=== PATIENT | male | born 1985 | race African-American/Black ===

== ENCOUNTER 2019-08-27 18:50 | Emergency (ER) | payer BC, OTHER ==
[2019-08-27 19:53] LABS: CHLORIDE,CL 103 mmol/L (98-107); SODIUM,NA 138 mmol/L (136-145)
[2019-08-27] MEDS ORDERED: Ondansetron 4 MG Tab.DIS PO ONE (20:59)
[2019-08-27] MEDS ORDERED: Magnesium Citrate Solution 296 ML Bottle PO ONE (20:59)
[2019-08-27] MEDS ORDERED: traMADol 50 MG Tab PO ONE (20:59)
[2019-08-27] MEDS ORDERED: Ketorolac 10 MG Tab PO ONE (21:00)
--- NOTE | 2019-08-27 21:12 | EDM.PDOC ---
ED HPI GENERAL MEDICAL PROBLEM - General Chief Complaint: General Stated Complaint: L LOWER RIB PAIN Time Seen by Provider: 08/27/19 19:03 Source of Information: Reports: Patient History Limitations: Reports: No Limitations - History of Present Illness INITIAL COMMENTS - FREE TEXT/NARRATIVE: Patient comes to ER with complaint of pain around lower anterior lateral ribs/upper abdomen. No injury but has been performing heavy lifting at [employer]. Started this morning. No history of similar pain in past. Denies HEENT changes/cough/SOB/chest pain. Deep breathing makes the pain mildly worse. Denies fever/recent illness. No nausea/emesis/bowel changes. No obvious constipation/loose stools. Eating and drinking well. No change with pain with positional change or PO intake. Denies hematuria/urinary changes. No headache/neuro changes. Does feel a little "bloated" in general around abdomen. Left Thoracic Pain Score (Numeric/FACES): 3 - Related Data Allergies Allergy/AdvReac Type Severity Reaction Status Date / Time No Known Allergies Allergy Verified 05/09/18 09:05 Home Meds: Home Meds . [No Known Home Meds] 05/09/18 [History] Past Medical History - Past Health History Medical/Surgical History: Denies Medical/Surgical History - Infectious Disease History Infectious Disease History: Reports: None Social & Family History - Family History Family Medical History: Noncontributory - Caffeine Use Caffeine Use: Reports: Coffee ED ROS GENERAL - Review of Systems Review Of Systems: Comprehensive ROS is negative, except as noted in HPI. ED EXAM, GENERAL - Physical Exam Exam: See Below Exam Limited By: No Limitations General Appearance: Alert, WD/WN, No Apparent Distress Eye Exam: Bilateral Eye: EOMI, PERRL Ears: Hearing Grossly Normal Nose: No: Nasal Deformity, Nasal Swelling, Nasal Drainage Throat/Mouth: Normal Lips, Normal Voice, No Airway Compromise Head: Atraumatic, Normocephalic Neck: Supple, Non-Tender, Full Range of Motion Respiratory/Chest: No Respiratory Distress, Lungs Clear, Normal Breath Sounds, No Accessory Muscle Use, Other (tender with palpation over lower anterior/ lateral rib margin. Reproduces pain complaint. No crepitius. No bruising or swelling. ) Cardiovascular: Regular Rate, Rhythm, No Edema, No Murmur GI/Abdominal: Normal Bowel Sounds, Soft, No Distention, Tender (over LUQ and left mid abdomen. Reproduces patient's pain complaint. ). No: Guarding, Rigid, Rebound (Male) Exam: Deferred Rectal (Males) Exam: Deferred Back Exam: Normal Inspection Extremities: Normal Inspection, Normal Range of Motion, Normal Capillary Refill Neurological: Alert, Oriented, Normal Cognition, Normal Gait, No Motor/Sensory Deficits Psychiatric: Normal Affect, Normal Mood Skin Exam: Warm, Dry, Intact, Normal Color, No Rash Course - Vital Signs Last Recorded V/S: Last Vital Signs Temp 36.6 C 08/27/19 18:57 Pulse 69 08/27/19 18:57 Resp 16 08/27/19 18:57 BP 126/85 08/27/19 18:57 Pulse Ox 100 08/27/19 18:57 - Orders/Labs/Meds Orders: Active Orders 24 hr Category Date Time Status Abdomen 2V AP Flat Upright [CR] Stat Exams 08/27/19 20:15 Ordered Ribs 2V w Chest Lt [CR] Stat Exams 08/27/19 19:41 Taken Labs: Laboratory Tests 08/27/19 08/27/19 08/27/19 Range/Units 19:31 19:31 20:14 WBC 7.1 (4.0-10.2) K/uL RBC 4.85 (4.33-5.41) M/uL Hgb 15.4 (13.1-16.8) g/dL Hct 43.2 (39.0-49.0) % MCV 89.1 (84.0-98.0) fL MCH 31.8 (28.2-33.3) pg MCHC 35.6 (31.7-36.0) g/dL RDW 11.8 (11.2-14.1) % Plt Count 296 (150-350) K/uL Neut % (Auto) 57.1 (45.0-80.0) % Lymph % (Auto) 30.3 (10.0-50.0) % [place] % (Auto) 10.5 (2.0-14.0) % Eos % (Auto) 1.5 (0.0-5.0) % Baso % (Auto) 0.6 (0.0-2.0) % Neut # (Auto) 4.07 (1.40-7.00) K/uL Lymph # (Auto) 2.16 (0.50-3.50) K/uL [place] # (Auto) 0.75 (0.00-1.00) K/uL Eos # (Auto) 0.11 (0.00-0.50) K/uL Baso # (Auto) 0.04 (0.00-0.20) K/uL Sodium 138 (136-145) mmol/L Potassium 3.7 (3.5-5.1) mmol/L Chloride 103 (98-107) mmol/L Carbon Dioxide 27.1 (21.0-32.0) mmol/L BUN 11 (7-18) mg/dL Creatinine 0.96 (0.51-1.17) mg/dL Est Cr Clr Drug Dosing 107.67 mL/min Estimated GFR (MDRD) > 60 mL/min Glucose 107 H (74-106) mg/dL Calcium 8.6 (8.5-10.1) mg/dL Total Bilirubin 0.4 (0.2-1.0) mg/dL AST 32 (15-37) U/L ALT 74 (12-78) U/L Alkaline Phosphatase 85 (46-116) IU/L Total Protein 7.5 (6.4-8.2) g/dL Albumin 3.6 (3.4-5.0) g/dL Specimen Type Urinblad Urine Color Light yellow Urine Appearance Clear Urine pH 5.5 (5.0-9.0) Ur Specific [place] 1.010 (1.005-1.030) Urine Protein Negative (NEGATIVE) mg/dL Urine Glucose (UA) Negative (NEGATIVE) mg/dL Urine Ketones Negative (NEGATIVE) mg/dL Urine Occult Blood Negative (NEGATIVE) Urine Nitrite Negative (NEGATIVE) Urine Bilirubin Negative (NEGATIVE) Urine Urobilinogen 0.2 (0.2-1.0) E.U./dL Ur Leukocyte Esterase Negative (NEGATIVE) Urine RBC Not seen /HPF Urine WBC Not seen /HPF Ur Epithelial Cells Occasional /LPF Urine Bacteria Not seen (NONE TO FEW) /HPF Meds: Medications Discontinued Medications Generic Name Dose Route Start Last Admin Trade Name Freq PRN Reason Stop Dose Admin Ketorolac Tromethamine 10 mg 08/27/19 21:00 Toradol PO 08/27/19 21:01 ONETIME ONE Magnesium Citrate 296 ml 08/27/19 20:59 Citrate Of Magnesia PO 08/27/19 21:00 ONETIME ONE Ondansetron HCl 4 mg 08/27/19 20:59 Zofran Odt PO 08/27/19 21:00 ONETIME ONE Tramadol HCl 50 mg 08/27/19 20:59 Ultram PO 08/27/19 21:00 ONETIME ONE - Radiology Interpretation Free Text/Narrative:: Xray of left ribs and abdomen performed. Increased overall stool burden. No air/fluid levels. No air under diaphragm or signs of obstruction. No rib fractures noted. - Re-Assessments/Exams Free Text/Narrative Re-Assessment/Exam: 08/27/19 21:25 CBC/Chem unremarkable. VSS. Afebrile. Xrays unremarkable except for increased stool noted. Pain with palpation over ribs and upper abdomen may indicate muscle strain. Patient does do a lot of lifting work at [employer]. Cannot rule out constipation contributing to pain given patient's feeling of bloating and increased stool noted on xray. No hematuria/dysuria reported. No flank pain. Differential reviewed with patient. He is agreeable with seeing of taking MagCitrate to promote a BM is helpful in relieving his bloated feeling and pain complaint. He is aware that this could be a muscle strain, but may be secondary to another, as yet identified, cause. Will take patient off work and send him home with MagCitrate. Single dose Zofran/Toradol/Tramadol given to help with discomfort. He is to reassess how he feels tomorrow morning and follow up as needed if symptoms continue or worsen. He is in agreement with plan. Departure - Departure Time of Disposition: 21:30 Disposition: Home, Self-Care 01 Condition: Good Clinical Impression: Left sided abdominal pain, Rib pain on left side - Discharge Information *PRESCRIPTION DRUG MONITORING PROGRAM REVIEWED*: Not Applicable *COPY OF PRESCRIPTION DRUG MONITORING REPORT IN PATIENT DEANNA: Not Applicable Instructions: Abdominal Pain, Adult, [id number] Referrals: PCP,Unknown [Primary Care Provider] - Forms: ED Department Discharge Additional Instructions: See how pain behaves after you have a bowel movement from the Mag Citrate. If constipation is contributing, this should help. You may also have muscle pain since you have pain over the lower ribs that extends down to the abdomen. Your labs/xray looked good other than the increased stool in the colon. Watch for changes. If nothing improves then you will need to be seen again and have further planning as needed. No heavy lifting. Sepsis Event Note (ED) - Evaluation Sepsis Screening Result: No Definite Risk - Focused Exam Vital Signs: Vital Signs Temp Pulse Resp BP Pulse Ox 08/27/19 18:57 36.6 C 69 16 126/85 100 - My Orders Last 24 Hours: My Active Orders 08/27/19 19:41 Ribs 2V w Chest Lt [CR] Stat 08/27/19 20:15 Abdomen 2V AP Flat Upright [CR] Stat - Assessment/Plan Last 24 Hours: My Active Orders 08/27/19 19:41 Ribs 2V w Chest Lt [CR] Stat 08/27/19 20:15 Abdomen 2V AP Flat Upright [CR] Stat
== END 2019-08-27 21:40 | disposition home or self-care (01) ==
LOC: SUPCPDRO 18:50 → LL.ED 18:50
DX: R07.81 Pleurodynia (principal); R10.12 Left upper quadrant pain
CPT/HCPCS: 36415; 71101-LT; 74019; 80053; 81001; 85025; 99284-25; A9270-GY

== ENCOUNTER 2019-08-30 08:03 | Day surgery (SDC) | payer OTHER ==
[~2019-08-30 08:03] MED LIST: Ketamine 500 mg/10 ML MDV ONE; Lactated Ringers 1,000 ML IV SCH; Midazolam 1 MG/ML 2 ML SDV ONE; Propofol 200 MG/20 ML SDV ONE; Sodium Chloride 0.9% 10 ML Syringe FLUSH PRN; fentaNYL 100 MCG/2 ML SDV ONE
[2019-08-30] MEDS ORDERED: Midazolam 1 MG/ML 2 ML SDV ONE (09:06)
[2019-08-30] MEDS ORDERED: Ketamine 500 mg/10 ML MDV ONE (09:06)
[2019-08-30] MEDS ORDERED: fentaNYL 100 MCG/2 ML SDV ONE (09:06)
[2019-08-30] MEDS ORDERED: Propofol 200 MG/20 ML SDV ONE (09:06)
--- NOTE | 2019-08-30 09:14 | PCM.HP.2 ---
H&P History of Present Illness - General Date of Service: 08/30/19 Admit Problem/Dx: Admission Diagnosis/Problem Admission Diagnosis/Problem Carpal tunnel syndrome of left wrist Source of Information: Patient, Old Records History Limitations: Reports: No Limitations - History of Present Illness Initial Comments - Free Text/Narative: Here for left Carpel Tunnel Release for EMG confirmed bilateral CTS. Will do right hand in 2 weeks - Related Data Allergies/Adverse Reactions: Allergies Allergy/AdvReac Type Severity Reaction Status Date / Time No Known Allergies Allergy Verified 08/30/19 08:15 Home Medications: Home Meds . [No Known Home Meds] 05/09/18 [History] Past Medical History - Past Health History Medical/Surgical History: Denies Medical/Surgical History Musculoskeletal History: Reports: Other (See Below) Other Musculoskeletal History: Pain to left hand - Infectious Disease History Infectious Disease History: Reports: None Social & Family History - Family History Family Medical History: Noncontributory - Tobacco Use Smoking Status *Q: Never Smoker - Caffeine Use Caffeine Use: Reports: Coffee H&P Review of Systems - Review of Systems: Review Of Systems: See Below General: Reports: No Symptoms Pulmonary: Reports: No Symptoms Cardiovascular: Reports: No Symptoms Gastrointestinal: Reports: No Symptoms Exam - Exam Exam: See Below - Vital Signs Vital Signs: Last Vital Signs Temp 97.6 F 08/30/19 08:17 Pulse 61 08/30/19 08:17 Resp 16 08/30/19 08:17 BP 140/74 08/30/19 08:17 Pulse Ox 100 08/30/19 08:17 Weight: 93.44 kg - Exam General: Alert, Oriented Lungs: Clear to Auscultation, Normal Respiratory Effort Cardiovascular: Regular Rate, Regular Rhythm Extremities: Normal Inspection, Normal Range of Motion, Other (Bilateral hand paresthesias) Sepsis Event Note - Focused Exam Vital Signs: Vital Signs Temp Pulse Resp BP Pulse Ox 08/30/19 08:17 97.6 F 61 16 140/74 100 Date Exam was Performed: 08/30/19 Time Exam was Performed: 09:10 Problem List Initiated/Reviewed/Updated: Yes Orders Last 24hrs: Active Orders 24 hr Category Date Time Status Patient Status [ADT] Routine ADT 08/30/19 07:00 Active Patient to Empty Bladder [RC] ASDIRECTED Care 08/30/19 07:00 Active Peripheral IV Care [RC] . DIRECTED Care 08/30/19 07:00 Active Verify Patient Consent Obtain [RC] ASDIRECTED Care 08/30/19 07:00 Active Nothing Per Oral Diet [DIET] Diet 08/30/19 Breakfast Active Lactated Ringers [Ringers, Lactated] 1,000 ml Med 08/30/19 07:00 Active IV ASDIRECTED Sodium Chloride 0.9% [Saline Flush] Med 08/30/19 07:00 Active 10 ml FLUSH ASDIRECTED PRN Peripheral IV Insertion Adult [OM.PC] Routine Oth 08/30/19 07:00 Ordered Medication Orders Lactated Ringer's (Ringers, Lactated) 1,000 mls @ 125 mls/hr IV ASDIRECTED DAYANARA Last Admin: 08/30/19 08:44 Dose: 125 mls/hr Documented by: RADHA Sodium Chloride (Saline Flush) 10 ml FLUSH ASDIRECTED PRN PRN Reason: Keep Vein Open Assessment/Plan Comment:: Bilateral Carpel Tunnel Syndrome Will proceed with L CTR today followed by R CTR in 2 weeks
--- NOTE | 2019-08-30 09:49 | PCM.OPNOTE ---
- General Post-Op/Procedure Note Date of Surgery/Procedure: 08/30/19 Operative Procedure(s): L CTR Pre Op Diagnosis: L CTS Post-Op Diagnosis: Same Anesthesia Technique: Local, MAC Primary Surgeon: Reymundo CHOWDARY in mLs: 0 Complications: None Condition: Good
--- NOTE | 2019-08-30 14:59 | OR ---
Date of Procedure: 08/30/2019 PREOPERATIVE DIAGNOSIS: Left carpal tunnel syndrome. POSTOPERATIVE DIAGNOSIS: Left carpal tunnel syndrome. PROCEDURE: Left carpal tunnel release. ANESTHESIA: Local MAC. PROCEDURE IN DETAIL: Patient was brought to the operating room after surgical site had been initialed by myself and the patient. Left hand and forearm were exsanguinated and tourniquet inflated. Hand and forearm were prepped with ChloraPrep and draped sterilely. 3 mL of 1% lidocaine were used to infiltrate the palmar crease. A routine incision was made in the skin fold above the transverse carpal ligament and extended through the subcutaneous tissue and palmar aponeurosis until the transverse carpal ligament was identified. The ligament was sharply incised until the median nerve was visible. The ligament was then split distally into the palm and proximally into the wrist. Finger palpation and inspection reveals the ligament to be completely released. Wound was thoroughly irrigated and skin closed with interrupted 4-0 Prolene vertical mattress sutures. Antibiotic ointment and a bulky pressure sterile dressing were applied. The patient tolerated the procedure well. Estimated blood loss was none. He returned to postanesthesia in stable condition. DOUGLAS OLIVERA MD /[id number]
== END 2019-08-30 11:44 | disposition home or self-care (01) ==
LOC: LL.SDS 08:03
PROVIDERS: ATTEND Surgery
DX: G56.03 Carpal tunnel syndrome, bilateral upper limbs (principal); E66.9 Obesity, unspecified; Z68.30 Body mass index [BMI] 30.0-30.9, adult
CPT/HCPCS: J2001; J2250; J2704; J3010; J7120

== ENCOUNTER 2019-09-27 08:46 | Day surgery (SDC) | payer BC ==
[2019-09-27] MEDS ORDERED: Sodium Chloride 0.9% 10 ML Syringe FLUSH PRN (09:00)
[2019-09-27] MEDS: Lactated Ringers 1,000 ML IV SCH (09:27)
[2019-09-27] MEDS ORDERED: Midazolam 1 MG/ML 2 ML SDV ONE ×3 (10:15→10:25)
[2019-09-27] MEDS ORDERED: Propofol 200 MG/20 ML SDV ONE ×2 (10:16→10:25)
--- NOTE | 2019-09-27 11:07 | PCM.HPR ---
H & P Addendum review - H & P Addendum Review Date of Original H & P: 08/30/19 Date Reviewed: 09/27/19 Patient was Examined: No Changes
--- NOTE | 2019-09-27 11:08 | PCM.OPNOTE ---
- General Post-Op/Procedure Note Date of Surgery/Procedure: 09/27/19 Operative Procedure(s): R CTR Pre Op Diagnosis: R CTS Post-Op Diagnosis: Same Anesthesia Technique: Local, MAC Primary Surgeon: Reymundo Hill Anesthesia Provider: Fiona Charles EBJohnnie in mLs: 0 Complications: None Condition: Good
[2019-09-27 13:07] VITALS: BP 113/68; PULSE 69
--- NOTE | 2019-09-27 14:21 | OR ---
Date of Procedure: 09/27/2019 PREOPERATIVE DIAGNOSIS: Right carpal tunnel syndrome. POSTOPERATIVE DIAGNOSIS: Right carpal tunnel syndrome. PROCEDURE: Right carpal tunnel release. ANESTHESIA: Local MAC. PROCEDURE IN DETAIL: Patient was brought to the operating room after surgical site was verified. The right hand and arm were exsanguinated and tourniquet inflated. Hand was prepped and draped sterilely. 4 mL of 1% lidocaine was used to infiltrate the palmar crease. A routine incision was made in the skin crease and extended through the palmar aponeurosis and subcutaneous tissue until the transverse carpal ligament was identified. This was sharply incised until the median nerve was visible. The ligament was then split distally into the palm and proximally into the wrist. Inspection and palpation revealed all constricting bands to be released. Wound was irrigated and closed with interrupted 4-0 Prolene vertical mattress sutures. Antibiotic ointment and a bulky sterile pressure dressing were applied. The patient tolerated the procedure well. Blood loss was none. He returned to postanesthesia in stable condition. DOUGLAS OLIVERA MD /[id number]
== END 2019-09-27 12:25 | disposition home or self-care (01) ==
LOC: LL.SDS 08:46
PROVIDERS: ATTEND Surgery
DX: G56.03 Carpal tunnel syndrome, bilateral upper limbs (principal)
CPT/HCPCS: J2001; J2250; J2704; J7120

== ENCOUNTER 2022-07-20 19:13 | Emergency (ER) | payer BC ==
[2022-07-20] MEDS: Ketorolac 30 MG/ML SDV IM ONE (19:33)
[2022-07-20] MEDS: Cyclobenzaprine 10 MG Tab PO ONE (19:34)
== END 2022-07-20 19:50 | disposition home or self-care (01) ==
LOC: LL.ED 19:13
DX: M54.50 Low back pain, unspecified (principal); X50.0XXA Overexertion from strenuous movement or load, initial encounter; Y92.89 Other specified places as the place of occurrence of the external cause; Y99.0 Civilian activity done for income or pay
CPT/HCPCS: 96372; 99283; A9270; J1885